=== PATIENT | female | born 1980 | race Native Hawaiian/Other Pacific Islander ===

== ENCOUNTER 2021-03-25 16:01 | Outpatient (CLI) | payer BC | END 2021-03-25 22:31 | disposition home or self-care (01) | LOC: RESP 16:01 | PROVIDERS: ATTEND Specialist | DX: F41.9 Anxiety disorder, unspecified (principal); R53.83 Other fatigue; R00.2 Palpitations; R06.89 Other abnormalities of breathing | CPT/HCPCS: 93225 ==